=== PATIENT | female | born 1990 | race Caucasian/White ===

== ENCOUNTER → 2020-01-30 | Outpatient (CLI) | payer OTHER | LOC: ONC 12:35 | PROVIDERS: ATTEND Nurse Practitioner Adult Health | DX: Z80.3 Family history of malignant neoplasm of breast (principal); Z80.8 Family history of malignant neoplasm of other organs or systems; Z80.49 Family history of malignant neoplasm of other genital organs | CPT/HCPCS: 99214 ==